=== PATIENT | male | born 1950 | race Caucasian/White ===

== ENCOUNTER 2025-04-28 14:21 | Inpatient (IN) | payer MEDICARE, OTHER, SELFPAY ==
--- NOTE | ~2025-04-28 | CT_ITS ---
EXAMINATION: CT ANGIOGRAM HEAD AND NECK CLINICAL INFORMATION: Dizziness, rule out stroke. COMPARISON: None available. TECHNIQUE: Noncontrast axial imaging of the head was performed. This was followed by test bolus sequences and head and neck intravenous bolus administration 70mL of Omnipaque 350. Helical imaging was performed in the axial plane from the aortic arch to the skull vertex. The data was processed at the chief ultrasound technologist's workstation for generation of MIP sequences. Angled MIPs and volume rendered reformatted images were also generated at an offline 3D workstation. Stenoses are assessed in accordance with NASCET criteria unless otherwise indicated. This CT examination was performed using dose optimization techniques as appropriate, variously including the following: *Automated exposure control *Adjustment of mA and/or kV according to patient size (this includes techniques or standardized protocols for targeted exams where dose is matched to indication/reason for exam; i.e. extremities or head) *Use of iterative reconstruction technique DLP: 1517 mGy*cm FINDINGS: NONCONTRAST HEAD CT: There is no evidence of intracranial hemorrhage or extra-axial fluid collection. There is no mass effect, or edema. No CT evidence of acute territorial infarct. Ventricles, sulci, and cisterns are normal in size and configuration for patient age. No hydrocephalus. No midline shift. No significant white matter abnormalities. Globes and orbital contents image normally. No extracranial soft tissue abnormalities. The paranasal sinuses, mastoid air cells, and tympanic cavities are normally aerated. No suspicious bony abnormalities. NECK CTA: Moderate motion degradation of images through the mid neck. -AORTIC ARCH: Normal in caliber. Mild atheromatous calcification. Three-vessel branching pattern. -GREAT VESSEL ORIGINS: Widely patent. No stenosis. -RIGHT COMMON CAROTID ARTERY: Normal in course and caliber to the level of the bifurcation. -CERVICAL RIGHT INTERNAL CAROTID ARTERY: Normal opacification without focal stenosis or occlusion. -LEFT COMMON CAROTID ARTERY: Normal in course and caliber to the level of the bifurcation. -CERVICAL LEFT INTERNAL CAROTID ARTERY: Mild calcific atherosclerotic disease of the carotid bulb and proximal internal carotid artery resulting in approximate 30% short segment stenosis. -CERVICAL RIGHT VERTEBRAL ARTERY: Codominant. Normal in course and caliber into the skull base. -CERVICAL LEFT VERTEBRAL ARTERY: Codominant. Normal in course and caliber into the skull base. OTHER, SOFT TISSUES: -No lymphadenopathy or mass. No abnormal fluid collection or soft tissue swelling. -Normal thyroid. -Imaged superior mediastinal structures normal. -Imaged lung apices clear. CTA OF THE BRAIN: -INTRACRANIAL INTERNAL CAROTID ARTERIES: No focal stenosis or occlusion. -RIGHT ANTERIOR CEREBRAL ARTERY: Normal A1 segment.. Normal arborization of the distal segments. -LEFT ANTERIOR CEREBRAL ARTERY: Normal A1 segment.. Normal arborization of the distal segments. -ANTERIOR COMMUNICATING ARTERY: Normal. -RIGHT MIDDLE CEREBRAL ARTERY: Normal M1 segment of the MCA without focal stenosis or occlusion. Normal bifurcation. Normal arborization of the distal segments. -LEFT MIDDLE CEREBRAL ARTERY: Normal M1 segment of the MCA without focal stenosis or occlusion. Normal bifurcation. Normal arborization of the distal segments. -RIGHT VERTEBRAL ARTERY V4: Normal in course and caliber. -LEFT VERTEBRAL ARTERY V4: There is fenestration of the mid to distal portion of the left vertebral artery. -BASILAR ARTERY: Normal without focal stenosis or occlusion. Normal appearance of the proximal superior cerebellar arteries. Normal basilar tip. -RIGHT POSTERIOR CEREBRAL ARTERY: Diminutive P1 segment with a origin. Normal opacification of the distal INFORMATION SYSTEMS AUDITOR segments. -LEFT POSTERIOR CEREBRAL ARTERY: The P1 segment is patent. Normal opacification of the distal INFORMATION SYSTEMS AUDITOR segments. 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 Normal opacification of the superior sagittal, straight, transverse, and sigmoid sinuses. No venous thrombosis. No space-occupying hemorrhage or definite evolving infarct. CT/CT angio head neck IMPRESSION: NONCONTRAST HEAD CT: No intracranial hemorrhage or mass effect. No CT evidence of acute territorial infarct. CTA NECK: No hemodynamically significant stenosis.. There is moderate motion artifact. CTA HEAD: No hemodynamically significant stenosis. Notification results sent to Korey Kauffman [facility] 4:45 PM Eastern time Electronically signed by: Mohit Bishop MD 04/28/2025 04:44 PM EDT
[2025-04-28 14:26] VITALS: BP 127/70; BP 132/60; PULSE 90; PULSE 99; RESP 19; TEMP 36.8; O2SAT 94; O2SAT 95; BMI 27.1
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
[2025-04-28 14:44] LABS: Glucose, Whole Blood 254 mg/dL (60-115)
[2025-04-28 15:09] LABS: MANUAL DIFF FLAG NO
[2025-04-28 15:12] LABS: Hematocrit 43.6 % (42.0-52.0); Hemoglobin 15.4 g/dl (14.0-18.0); Imm Gran Abs Auto 0.18 X10*3/uL (0.00-0.03); Imm Gran Pct Auto 0.9 % (0.0-0.4); Lymphocytes Absolute Auto 2.3 X10*3/uL (1.2-4.9); Mean Corpuscular HGB Conc 35.3 g/dl (31.0-36.0); Mean Corpuscular Hemoglobin 32.2 pg (27.0-33.0); Mean Corpuscular Volume 91.0 fL (80.0-98.0); NRBC Abs Auto 0.000 X10*3/uL (0.0-0.012); NRBC Pct Auto 0.0 /100WBC (0.0-0.2); Platelet Count 233 X10*3/uL (160-400); Red Blood Count 4.79 X10*6/uL (4.60-5.80); White Blood Count 19.3 X10*3/uL (4.8-10.8)
[2025-04-28 15:29] LABS: Alanine Aminotransferase 12 U/L (0-40); Albumin Level 3.6 g/dL (3.5-5.0); Alkaline Phosphatase 80 U/L (39-117); Anion Gap 11 (12-20); Aspartate Amino Transferase 17 U/L (5-37); Blood Urea Nitrogen 12 mg/dL (9-16); Calcium 8.2 mg/dL (8.4-10.2); Carbon Dioxide 24 mmol/L (22-29); Chloride 106 mmol/L (96-108); Creatinine Clr Calc Pharmacy 52.6; Estimated Glomerular Filt Rate 59; Potassium 3.8 mmol/L (3.3-5.1); Sodium 137 mmol/L (135-145); Total Protein 6.5 g/dL (6.5-8.0)
[2025-04-28 15:36] LABS: Troponin-I High Sensitivity 4.0 ng/L (<3.5-35.0)
[2025-04-28 15:59] LABS: Appearance Urine Clear; Glucose Urine UA >=1000 mg/dL (Negative); PH 5.5 (5.0-9.0); Specific Gravity - Urine >= 1.030 (1.005-1.025); UMIC TRIGGER UACC YES
[2025-04-28 16:04] LABS: UACC Culture Trigger YES
[2025-04-28 16:09] LABS: Cannabinoid Screen Urine Not Detected (Not Detect)
[2025-04-28 16:14] VITALS: BP 134/67; PULSE 84; RESP 14; TEMP 36.9; O2SAT 96
[2025-04-28] MEDS: iohexoL 350 MG/ML 100 ML INFUS..BTL IV (16:23)
--- OUTSIDE RECORDS SUMMARY | 2025-04-28 17:32 | XMS_ITS | Encounter Summary ---
Author Organization [facility] Address [address] [place] [id number] Phone Care Team Providers Care Vault Attendant Name Role Phone Unknown, Unknown Primary Care Provider Maame richardson Encounter Details Date Type Department Care Team (Late st Contact Info) Description 08/04/2018 Ancillary Orders Virtual Department [address] [place] [address] Mila Ferrer MD [address] [place] [phone] Lung nodule; Abnormal CT scan Social History Tobacco Use Types Packs/Day Years Used Date Smoking Tobacco: Never Assessed Sex and Gender Information Value Date Recorded Sex Assigned at Not on file Legal Sex Male 10:00 PM EDT Gender Identity Not on file Sexual Orientation Not on file documented as of this encounter Plan of Treatment Not on file documented as of this encounter Visit Diagnoses Diagnosis Lung nodule Other diseases of lung, not elsewhere classified Abnormal CT scan Other nonspecific (abnormal) findings on radiological and other examinations of body structure documented in this encounter Care Teams Vault Attendant Relationship Specialty Start Date End Date Unknown, Unknown, PCP - General 08/04/18 documented as of this encounter Additional Source Comments The information contained in this document represents components of the legal health record. It is not the complete legal health record.[facility]
--- OUTSIDE RECORDS SUMMARY | 2025-04-28 17:32 | XMS_ITS | Clinical Summary ---
Author Organization [facility] Address [address] [place] [id number] Phone Care Team Providers Care Custom Stock Maker Name Role Phone Unknown, Unknown Primary Care Provider Maame richardson Social History Tobacco Use Types Packs/Day Years Used Date Smoking Tobacco: Never Assessed Education Answer Date Recorded Are you interested in more education? Not on reina e 12/12/2022 Are you concerned about learning? Not on file 12/12/2022 No 12/12/2022 No 12/12/2022 Digital Access Answer Date Recorded No 01/12/2023 No 01/12/2023 No 01/12/2023 Reliable internet access at home? Not on file 01/12/2023 Device with a working camera? Not on file Sex and Gender Information Value Date Recorded Sex Assigned at Not on file Legal Sex Male 10:00 PM EDT Gender Identity Not on file Sexual Orientation Not on file Last Filed Vital Signs Vital Sign Reading Time Taken Comments Blood Pressure 118/68 10/02/2011 9:50 AM EST Pulse 92 10/02/2011 9:50 AM EST Temperature - - Respiratory Rate - - Oxygen Saturation - - Inhaled Oxygen Concentration - - Weight 102.1 kg (225 lb) 10/02/2011 9:50 AM EST Height 172.7 cm (5' 8 ) 10/02/2011 9:50 AM EST Body Mass Index 34.21 10/02/2011 9:50 AM EST Plan of Treatment Not on file Medical Devices Not on file Insurance [employer] [facility] TOTAL CHOICE INDEMNITY MEDICARE PART A & B TOTAL CHOICE INDEMNITY MEDICARE PART A & B [facility] TOTAL CHOICE INDEMNITY MEDICARE PART A & B [facility] TOTAL CHOICE INDEMNITY MEDICARE PART A & B [employer] TOTAL CHOICE INDEMNITY MEDICARE PART A & B [employer] TOTAL CHOICE INDEMNITY MEDICARE PART A & B [employer] TOTAL CHOICE INDEMNITY MEDICARE PART A & B [employer] TOTAL CHOICE INDEMNITY MEDICARE PART A & B TOTAL [employer] INDEMNITY MEDICARE PART A & B Member Subscriber Plan / Payer (Ef fective 2016-Present) Name:Tao Luong Member ID:[id number] Relation to Subscriber:Self Name:Tao Luong Subscriber ID:[id number] Payer ID:[id number] Group ID:Not on file Type:Medicare Address: [employer] [address] Care Teams Custom Stock Maker Relationship Specialty Start Date End Date Unknown, Unknown, PCP - General 08/04/18 Additional Source Comments The information contained in this document represents components of the legal health record. It is not the complete legal health record.[facility]
[2025-04-28 17:38] VITALS: BP 116/57; BP 137/63; BP 139/65; PULSE 82; PULSE 84; PULSE 88
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
[2025-04-28 18:34] VITALS: BP 124/75; PULSE 82; RESP 19; O2SAT 100
[2025-04-28 19:29] LABS: Glucose, Whole Blood 142 mg/dL (60-115)
--- NOTE | 2025-04-28 19:32 | PC.NURSE ---
assumed care of pt, son at bedside, fluids running as ordered per OCT. POC 142
--- NOTE | 2025-04-28 19:38 | PHA.MEDREC ---
Addendum entered by Leander Cook PharmD 04/28/25 19:48: reviewed Original Note: Pharmacy Consult ? Medication Reconciliation Pharmacy has completed the medication reconciliation. Spoke to patients son at bedside to confirm med list. Son was able to confirm all of patients medications. Son confirmed Tresiba Flex touch 35 units daily, Ozempic 2 mg every Thursday, last dose 04/26/25. Patient had all his morning medications today.
[2025-04-28 20:25] VITALS: BP 119/59; PULSE 96; RESP 16; TEMP 38.2; O2SAT 93
--- NOTE | 2025-04-28 20:37 | PC.NURSE ---
pt oral temp at 100.1, PRN Tylenol given PO. P tolerated swallow well.
[2025-04-28 21:18] LABS: Glucose, Whole Blood 231 mg/dL (60-115)
[2025-04-28 22:25] VITALS: BP 124/61; PULSE 92; RESP 12; TEMP 37.2; O2SAT 93
--- NOTE | 2025-04-28 22:55 | PC.NURSE ---
pt medicated per OCT for fever.
[2025-04-29] VITALS (9 sets, daily range): BP systolic 114–137; BP diastolic 55–67; PULSE 69–77; RESP 16–18; TEMP 36.4–36.9; O2SAT 90–98; BMI 27.1
[2025-04-29] MEDS: 0.9 % Sodium Chloride Flush 3 ML SYRINGE IVFLUSH ×4 (00:47→20:36)
[2025-04-29 06:37] LABS: Alanine Aminotransferase 13 U/L (0-40); Albumin Level 3.5 g/dL (3.5-5.0); Alkaline Phosphatase 70 U/L (39-117); Anion Gap 13 (12-20); Aspartate Amino Transferase 17 U/L (5-37); Blood Urea Nitrogen 13 mg/dL (9-16); Calcium 8.4 mg/dL (8.4-10.2); Carbon Dioxide 23 mmol/L (22-29); Chloride 108 mmol/L (96-108); Creatinine Clr Calc Pharmacy 63.0; Estimated Glomerular Filt Rate > 60; Potassium 3.5 mmol/L (3.3-5.1); Sodium 140 mmol/L (135-145); Total Protein 6.2 g/dL (6.5-8.0)
--- NOTE | 2025-04-29 06:39 | PC.NURSE ---
blood sugar at 50, PRN 50% dextrose given per MAR.
[2025-04-29 07:18] LABS: Glucose, Whole Blood 149 mg/dL (60-115)
[2025-04-29] MEDS: Aspirin Enteric Coated 81 MG TABLET.DR PO (09:21)
--- NOTE | 2025-04-29 09:50 | P.PNIM_ITS ---
Subjective Subjective Date of Service: 04/29/25 Interval History: f/u on symptomatic uti, and confusion hypoglycemia this morning, sugar of 57 given iv dextrose with improvement Physical Exam 2 Vital Signs: Vital Signs: Last Vital Signs Temp 98.5 F 04/29/25 08:00 Pulse 72 04/29/25 08:52 Resp 16 04/29/25 08:00 BP 114/55 L 04/29/25 08:52 Pulse Ox 97 04/29/25 08:00 O2 Del Method Room Air 04/29/25 08:00 O2 Flow Rate 2 04/29/25 05:56 BMI result Body Mass Index 27.1 General: AO X 3, no acute distress Resp: CTA bilateral CVS: S1,S2,RRR GI: +BS, NT, no distention Skin: No rash Neuro: motor grossly intact Psych: appropriate affect Objective Data Active Medications Acetaminophen (Acetaminophen 325 Mg Tablet) 650 mg PO Q6H PRN PRN Reason: Pain, Mild 1-3,fever,headache Last Admin: 04/28/25 20:31 Dose: 650 mg Documented By: DENZEL Amitriptyline HCl (Amitriptyline Hcl 25 Mg Tablet) 75 mg PO BID [facility] Last Admin: 04/29/25 09:21 Dose: 75 mg Documented By: ERICA Aspirin (Aspirin Enteric Coated 81 Mg Tablet.) 81 mg PO DAILY [facility] Last Admin: 04/29/25 09:21 Dose: 81 mg Documented By: ERICA Atorvastatin Calcium (Atorvastatin Calcium 10 Mg Tablet) 10 mg PO DAILY [facility] Last Admin: 04/29/25 09:21 Dose: 10 mg Documented By: ERICA Calcium Carbonate (Calcium Carbonate 750 Mg Tab.Chew) 750 mg PO Q4H PRN PRN Reason: Heartburn Ceftriaxone Sodium (Ceftriaxone Sodium 1 Gm Vial) 1 gm IVPUSH DAILY [facility] Last Admin: 04/29/25 09:25 Dose: 1 gm Documented By: ERICA Dextrose (Dextrose 50 % 25 Gm/50 Ml Syringe) 25 gm IVPUSH Q15M PRN; Protocol PRN Reason: per Hypoglycemia Standing Ord. Last Admin: 04/29/25 06:39 Dose: 25 gm Documented By: DENZEL Enoxaparin Sodium (Enoxaparin Sodium 40 Mg/0.4 Ml Syringe) 40 mg SUBCUT Q24H [facility] Last Admin: 04/28/25 18:17 Dose: 40 mg Documented By: JOHNATHON Glucose (Glucose Gel 15 Gm Gel..Gram.) 15 gm PO Q15M PRN; Protocol PRN Reason: per Hypoglycemia Standing Ord. Insulin Human Lispro (Insulin Lispro 100 Unit/Ml 3 Ml Vial) 0 unit SUBCUT QIDACHS [facility]; Protocol Last Admin: 04/29/25 08:10 Dose: Not Given Documented By: DENZEL Non-Admin Reason: No Insulin Coverage Lisinopril (Lisinopril 10 Mg Tablet) 10 mg PO DAILY [facility]; Protocol Last Admin: 04/29/25 09:21 Dose: 10 mg Documented By: ERICA Magnesium Hydroxide (Milk Of Magnesia 30 Ml Oral.Susp) 30 ml PO DAILY PRN PRN Reason: Constipation Melatonin (Melatonin 3 Mg Tablet) 6 mg PO BEDTIME PRN PRN Reason: Insomnia Sodium Chloride (0.9 % Sodium Chloride Flush 3 Ml Syringe) 3 ml IVFLUSH QSHIFT [facility] Last Admin: 04/29/25 09:25 Dose: 3 ml Documented By: ERICA Labs 04/29/25 10:12 04/29/25 05:20 Labs: Laboratory Results - last 24 hr 04/28/25 04/28/25 04/28/25 14:31 15:03 15:49 MCV 91.0 MCH 32.2 MCHC 35.3 RDW 12.6 Plt Count 233 MPV 8.9 L Immature Gran % (Auto) 0.9 H Neut % (Auto) 78.2 H Lymph % (Auto) 11.8 L [place] % (Auto) 6.6 Eos % (Auto) 2.1 Baso % (Auto) 0.4 Lymph # (Auto) 2.3 [place] # (Auto) 1.3 H Eos # (Auto) 0.4 Baso # (Auto) 0.1 Abs Immat Gran (auto) 0.18 H Absolute Neuts (auto) 15.1 H Absolute Nucleated RBC 0.000 Nucleated RBC % (auto) 0.0 Anion Gap 11 L Estim Creat Clear Calc 52.6 Estimated GFR 59 POC Glucose 254 H Random Glucose 250 H Lactic Acid Calcium 8.2 L Total Bilirubin 0.5 AST 17 ALT 12 Alkaline Phosphatase 80 Total Protein 6.5 Albumin 3.6 Beta-Hydroxybutyrate 0.47 H Urine Color Yellow Urine Appearance Clear Urine pH 5.5 Ur Specific [place] >= 1.030 H Urine Protein 100 (2+) H Urine Glucose (UA) >=1000 H Urine Ketones Trace Urine Blood Trace H Urine Nitrite Positive H Ur Leukocyte Esterase Small (1+) H Urine RBC 0-2 Urine WBC >50 H Ur Squamous Epith Cells 0-2 Urine Bacteria 1+ Hyaline Casts 0-2 Urine Opiates Screen Not Detected Ur Buprenorphine Scrn Not Detected Ur Oxycodone Screen Not Detected Urine Methadone Screen Not Detected Urine Fentanyl Screen Not Detected Ur Barbiturates Screen Not Detected Ur Phencyclidine Scrn Not Detected Ur Amphetamines Screen Not Detected U Benzodiazepines Scrn Not Detected Urine Cocaine Screen Not Detected U Marijuana (THC) Screen Not Detected Ethyl Alcohol < 10 04/28/25 04/28/25 04/28/25 17:29 19:25 21:15 MCV MCH MCHC RDW Plt Count MPV Immature Gran % (Auto) Neut % (Auto) Lymph % (Auto) [place] % (Auto) Eos % (Auto) Baso % (Auto) Lymph # (Auto) [place] # (Auto) Eos # (Auto) Baso # (Auto) Abs Immat Gran (auto) Absolute Neuts (auto) Absolute Nucleated RBC Nucleated RBC % (auto) Anion Gap Estim Creat Clear Calc Estimated GFR POC Glucose 142 H 231 H Random Glucose Lactic Acid 0.9 Calcium Total Bilirubin AST ALT Alkaline Phosphatase Total Protein Albumin Beta-Hydroxybutyrate Urine Color Urine Appearance Urine pH Ur Specific [place] Urine Protein Urine Glucose (UA) Urine Ketones Urine Blood Urine Nitrite Ur Leukocyte Esterase Urine RBC Urine WBC Ur Squamous Epith Cells Urine Bacteria Hyaline Casts Urine Opiates Screen Ur Buprenorphine Scrn Ur Oxycodone Screen Urine Methadone Screen Urine Fentanyl Screen Ur Barbiturates Screen Ur Phencyclidine Scrn Ur Amphetamines Screen U Benzodiazepines Scrn Urine Cocaine Screen U Marijuana (THC) Screen Ethyl Alcohol 04/29/25 04/29/25 05:20 07:14 MCV MCH MCHC RDW Plt Count MPV Immature Gran % (Auto) Neut % (Auto) Lymph % (Auto) [place] % (Auto) Eos % (Auto) Baso % (Auto) Lymph # (Auto) [place] # (Auto) Eos # (Auto) Baso # (Auto) Abs Immat Gran (auto) Absolute Neuts (auto) Absolute Nucleated RBC Nucleated RBC % (auto) Anion Gap 13 Estim Creat Clear Calc 63.0 Estimated GFR > 60 POC Glucose 149 H Random Glucose 57 L* Lactic Acid Calcium 8.4 Total Bilirubin 0.6 AST 17 ALT 13 Alkaline Phosphatase 70 Total Protein 6.2 L Albumin 3.5 Beta-Hydroxybutyrate Urine Color Urine Appearance Urine pH Ur Specific [place] Urine Protein Urine Glucose (UA) Urine Ketones Urine Blood Urine Nitrite Ur Leukocyte Esterase Urine RBC Urine WBC Ur Squamous Epith Cells Urine Bacteria Hyaline Casts Urine Opiates Screen Ur Buprenorphine Scrn Ur Oxycodone Screen Urine Methadone Screen Urine Fentanyl Screen Ur Barbiturates Screen Ur Phencyclidine Scrn Ur Amphetamines Screen U Benzodiazepines Scrn Urine Cocaine Screen U Marijuana (THC) Screen Ethyl Alcohol Assessment and Plan (1) Diabetes: Status: Acute (2) UTI (urinary tract infection): Status: Acute Plan 1. Urinary Tract Infection: The patient had a positive urinalysis for a urinary tract infection, which is likely contributing to his weakness and overall condition of confusion. He has been started on Ceftriaxone which will be continue, follow culture sensitivity. Repeat WBC in the morning. 2. Diabetes with Hyperglycemia on admission and now hypoglycemia this morning, despite not taking his meds: He is on lantus, ozempic, jardiance at home. Sugar this morning 57. hold Jardiance, lantus and continue ssi, diabetic diet--there is posibility of hypoglycemia as contributing to his presenting symptoms despite BS reported high when he came in 3. HLD on Simvastatin at home, continue formulary exchange 4. HTN continue Lisinpril 5. Mood disorder, elavil DVT prophylaxis: Lovenox Full code Quality Stroke Does the patient have a stroke diagnosis?: No VTE Prior VTE?: No VTE Risk Level:: Medical - moderate - high VTE Device Contraindication: Treatment Not Indicated VTE Drug Contraindication: N/A - Med Ordered
[2025-04-29 10:26] LABS: Hematocrit 44.3 % (42.0-52.0); Hemoglobin 15.4 g/dl (14.0-18.0); Mean Corpuscular HGB Conc 34.8 g/dl (31.0-36.0); Mean Corpuscular Hemoglobin 32.1 pg (27.0-33.0); Mean Corpuscular Volume 92.3 fL (80.0-98.0); NRBC Abs Auto 0.000 X10*3/uL (0.0-0.012); NRBC Pct Auto 0.0 /100WBC (0.0-0.2); Platelet Count 235 X10*3/uL (160-400); Red Blood Count 4.80 X10*6/uL (4.60-5.80); White Blood Count 19.3 X10*3/uL (4.8-10.8)
--- NOTE | 2025-04-29 10:42 | MHC.CM.PN ---
pt lives alone is indepedent has a ride home dc plan home n/s
[2025-04-29 11:08] LABS: Glucose, Whole Blood 128 mg/dL (60-115)
[2025-04-29 16:21] LABS: Glucose, Whole Blood 168 mg/dL (60-115)
[2025-04-29 20:06] LABS: Glucose, Whole Blood 155 mg/dL (60-115)
[2025-04-30 03:21] VITALS: BP 137/71; PULSE 77; RESP 18; TEMP 36.4; O2SAT 93
[2025-04-30 07:20] VITALS: BP 122/60; PULSE 68; RESP 18; TEMP 37; O2SAT 93
[2025-04-30 07:26] LABS: Glucose, Whole Blood 117 mg/dL (60-115)
[2025-04-30] MEDS: Aspirin Enteric Coated 81 MG TABLET.DR PO (08:45)
[2025-04-30] MEDS: 0.9 % Sodium Chloride Flush 3 ML SYRINGE IVFLUSH (08:47)
--- NOTE | 2025-04-30 08:47 | P.PNIM_ITS ---
Subjective Subjective Date of Service: 04/30/25 Interval History: f/u on symptomatic uti, and confusion dong well, no new issues, BS ok Physical Exam 2 Vital Signs: Vital Signs: Last Vital Signs Temp 98.6 F 04/30/25 07:20 Pulse 68 04/30/25 07:20 Resp 18 04/30/25 07:20 BP 122/60 04/30/25 07:20 Pulse Ox 93 04/30/25 07:20 O2 Del Method Room Air 04/30/25 07:20 O2 Flow Rate 2 04/29/25 05:56 BMI result Body Mass Index 27.1 General: AO X 3, no acute distress Resp: CTA bilateral CVS: S1,S2,RRR GI: +BS, NT, no distention Skin: No rash Neuro: motor grossly intact Psych: appropriate affect Objective Data Active Medications Acetaminophen (Acetaminophen 325 Mg Tablet) 650 mg PO Q6H PRN PRN Reason: Pain, Mild 1-3,fever,headache Last Admin: 04/28/25 20:31 Dose: 650 mg Documented By: DENZEL Amitriptyline HCl (Amitriptyline Hcl 25 Mg Tablet) 75 mg PO BID [facility] Last Admin: 04/30/25 08:45 Dose: 75 mg Documented By: ERICA Aspirin (Aspirin Enteric Coated 81 Mg Tablet.Dr) 81 mg PO DAILY [facility] [place] Last Admin: 04/30/25 08:45 Dose: 81 mg Documented By: ERICA Atorvastatin Calcium (Atorvastatin Calcium 10 Mg Tablet) 10 mg PO DAILY [facility] Last Admin: 04/30/25 08:45 Dose: 10 mg Documented By: ERICA Calcium Carbonate (Calcium Carbonate 750 Mg Tab.Chew) 750 mg PO Q4H PRN PRN Reason: Heartburn Ceftriaxone Sodium (Ceftriaxone Sodium 1 Gm Vial) 1 gm IVPUSH DAILY [facility] Last Admin: 04/29/25 09:25 Dose: 1 gm Documented By: ERICA Dextrose (Dextrose 50 % 25 Gm/50 Ml Syringe) 25 gm IVPUSH Q15M PRN; Protocol PRN Reason: per Hypoglycemia Standing Ord. Last Admin: 04/29/25 06:39 Dose: 25 gm Documented By: DENZEL Enoxaparin Sodium (Enoxaparin Sodium 40 Mg/0.4 Ml Syringe) 40 mg SUBCUT Q24H [facility] Last Admin: 04/29/25 17:50 Dose: 40 mg Documented By: ERICA Glucose (Glucose Gel 15 Gm Gel..Gram.) 15 gm PO Q15M PRN; Protocol PRN Reason: per Hypoglycemia Standing Ord. Doxycycline Hyclate 100 mg/ (Sodium Chloride) 250 mls @ 166.67 mls/hr IV Q12H [facility] Last Infusion: 04/30/25 04:12 Dose: Infused Documented By: VINNIE Insulin Human Lispro (Insulin Lispro 100 Unit/Ml 3 Ml Vial) 0 unit SUBCUT QIDACHS [facility]; Protocol Last Admin: 04/30/25 07:32 Dose: Not Given Documented By: ERICA Non-Admin Reason: No Insulin Coverage Lisinopril (Lisinopril 10 Mg Tablet) 10 mg PO DAILY [facility]; Protocol Last Admin: 04/30/25 08:45 Dose: 10 mg Documented By: ERICA Magnesium Hydroxide (Milk Of Magnesia 30 Ml Oral.Susp) 30 ml PO DAILY PRN PRN Reason: Constipation Melatonin (Melatonin 3 Mg Tablet) 6 mg PO BEDTIME PRN PRN Reason: Insomnia Sodium Chloride (0.9 % Sodium Chloride Flush 3 Ml Syringe) 3 ml IVFLUSH QSHIFT [facility] Last Admin: 04/29/25 20:36 Dose: 3 ml Documented By: VINNIE Labs 04/29/25 10:12 04/29/25 05:20 Labs: Laboratory Results - last 24 hr 04/29/25 04/29/25 04/29/25 10:12 11:04 16:17 MCV 92.3 MCH 32.1 MCHC 34.8 RDW 12.4 Plt Count 235 MPV 9.1 L Absolute Nucleated RBC 0.000 Nucleated RBC % (auto) 0.0 POC Glucose 128 H 168 H 04/29/25 04/30/25 20:01 07:23 MCV MCH MCHC RDW Plt Count MPV Absolute Nucleated RBC Nucleated RBC % (auto) POC Glucose 155 H 117 H Microbiology Microbiology Results: Microbiology 04/28/25 Unknown Urine Culture - Preliminary Urine clean catch - Clean Catch Midstream Staphylococcus epidermidis 04/28/25 17:29 Blood Culture - Preliminary Blood - Venous No growth after 24 hours. 04/28/25 17:29 Blood Culture - Preliminary Blood - Venous No growth after 24 hours. Assessment and Plan (1) Diabetes: Status: Acute (2) UTI (urinary tract infection): Status: Acute Plan 1. Urinary Tract Infection: The patient had a positive urinalysis for a urinary tract infection, which is likely contributing to his weakness and overall condition of confusion. He has been started on Ceftriaxone and Doxy, urine culture = staph species, sensitivity pending 2. Diabetes with Hyperglycemia on admission, and hypoglycemia next day despite not taking his meds: He is on lantus, ozempic, jardiance at home. Sugar this morning 57. He is only being SSI in the hospital Fasting blood sugar is 117 today. He is supposed to be on Tresiba 35, jardiance 25 daily and Ozempic 2 mg weekly.. Concern that hypoglycemia may have contributed to his presenting condition. Check A1C. Hold Tresiba, Jardiance for now. 3. HLD on Simvastatin at home, continue formulary exchange 4. HTN continue Lisinpril 5. Mood disorder, elavil DVT prophylaxis: Lovenox Full code Quality Stroke Does the patient have a stroke diagnosis?: No VTE Prior VTE?: No VTE Risk Level:: Medical - moderate - high VTE Device Contraindication: Treatment Not Indicated VTE Drug Contraindication: N/A - Med Ordered
[2025-04-30 08:49] LABS: Hematocrit 46.8 % (42.0-52.0); Hemoglobin 16.2 g/dl (14.0-18.0); Mean Corpuscular HGB Conc 34.6 g/dl (31.0-36.0); Mean Corpuscular Hemoglobin 32.2 pg (27.0-33.0); Mean Corpuscular Volume 93.0 fL (80.0-98.0); NRBC Abs Auto 0.000 X10*3/uL (0.0-0.012); NRBC Pct Auto 0.0 /100WBC (0.0-0.2); Platelet Count 270 X10*3/uL (160-400); Red Blood Count 5.03 X10*6/uL (4.60-5.80); White Blood Count 14.6 X10*3/uL (4.8-10.8)
[2025-04-30 09:01] LABS: Anion Gap 13 (12-20); Blood Urea Nitrogen 13 mg/dL (9-16); Calcium 8.9 mg/dL (8.4-10.2); Carbon Dioxide 26 mmol/L (22-29); Chloride 104 mmol/L (96-108); Creatinine Clr Calc Pharmacy 64.2; Estimated Glomerular Filt Rate > 60; Potassium 3.9 mmol/L (3.3-5.1); Sodium 139 mmol/L (135-145)
[2025-04-30 11:11] LABS: Glucose, Whole Blood 187 mg/dL (60-115)
[2025-04-30 11:18] VITALS: BP 123/66; PULSE 72; RESP 16; TEMP 36.9; O2SAT 95
--- NOTE | 2025-04-30 13:57 | P.DS_ITS ---
DS: Providers Provider Date of Service: 04/30/25 Date of admission: 04/28/25 17:48 Date of discharge: 04/30/25 Primary care physician: Pedro Vargas MD DS: Diagnosis Discharge Diagnosis (1) Diabetes: Status: Acute (2) UTI (urinary tract infection): Status: Acute DS: Summary Hospital Course Hospital Course: Admission hpi Chief Complaint: Confusion The patient is a 74-year-old male with a history of diabetes with confusion. The patient was on his way to his primary care physician's and he was noted to be swearving in traffic and was pulled over by polic and subsequently brought to the ED. Head is negative for acute finding. WBC is 19K and UA is grossly positive for UTI. He is started on Ceftriaxone for UTI. He denies fever, dysuria. He reports feeling dizzy and almost passing out while in bathroom several days ago. Utox and alcohol level are normal Hospital course: Patient presented with confusion, and sweavering in trafic. Upon presentation in ED, CT head showed no acute finding. Further testing revealed UTI and WBC was 19, there was no hypolycemia, gluse was over 200.. At the time I saw him in the ED, he was lucid. He was hydrated, admited and given IV Abx, initially with IV Ceftriaxone, the next day urine culture showed staph species and WBC remained high at 19, Doxycyline was added and by 3rd day urine culture was reported as staph species and wbc is trending down. presently 14. Nof ever and other features of sepsis. Will transition to oral Doxycyline at discharge for a total of 10 days. Confusion--Likely related to UTI, and has been lucid since hospitalization. He had an episode of hypoglycemia, the next morning, assymptomatic. Diabetes with Hyperglycemia on admission, and hypoglycemia next day despite not taking his meds: He is on lantus, ozempic, jardiance at home. Sugar day after admission was 57. He is only being SSI in the hospital Fasting blood sugar is 117 today. He is supposed to be on Tresiba 35, jardiance 25 daily and Ozempic 2 mg weekly.. Concern that hypoglycemia may have contributed to his presenting condition. Check A1C. He relates that he sometimes get low sugars at home and will drink only juice. I am advising him to decrease Tresiba to 15 for now. Chart all sugars and to follow up with PCP later this week--Plan was communicated with patient and son at the bedside 3. HLD on Simvastatin at home, continue formulary exchange 4. HTN continue Lisinpril 5. Mood disorder, elavil Time Attestation Discharge Coordination Time (in mins): 40 Quality: Safe Use of Opioids Does Pt have an Active Cancer Diagnosis on the Problem List?: No Quality: Stroke Does the patient have a stroke diagnosis?: No Physical Exam Vital Signs: Vital Signs: Last Vital Signs Temp 98.4 F 04/30/25 11:18 Pulse 72 04/30/25 11:18 Resp 16 04/30/25 11:18 BP 123/66 04/30/25 11:18 Pulse Ox 95 04/30/25 11:18 O2 Del Method Room Air 04/30/25 11:18 O2 Flow Rate 2 04/29/25 05:56 BMI result Body Mass Index 27.1 DS: Data Data Completed and Pending Labs on day of discharge: Laboratory Results - last 24 hr 04/29/25 04/29/25 04/30/25 16:17 20:01 07:23 WBC RBC Hgb Hct MCV MCH MCHC RDW Plt Count MPV Absolute Nucleated RBC Nucleated RBC % (auto) Sodium Potassium Chloride Carbon Dioxide Anion Gap BUN Creatinine Estim Creat Clear Calc Estimated GFR POC Glucose 168 H 155 H 117 H Random Glucose Calcium 04/30/25 04/30/25 08:13 11:02 WBC 14.6 H RBC 5.03 Hgb 16.2 Hct 46.8 MCV 93.0 MCH 32.2 MCHC 34.6 RDW 12.2 Plt Count 270 MPV 9.3 L Absolute Nucleated RBC 0.000 Nucleated RBC % (auto) 0.0 Sodium 139 Potassium 3.9 Chloride 104 Carbon Dioxide 26 Anion Gap 13 BUN 13 Creatinine 0.99 Estim Creat Clear Calc 64.2 Estimated GFR > 60 POC Glucose 187 H Random Glucose 142 H Calcium 8.9 Preliminary micro results at discharge 04/28/25 17:29 Blood Culture - Preliminary Blood - Venous No growth after 24 hours. 04/28/25 17:29 Blood Culture - Preliminary Blood - Venous No growth after 24 hours. Discharge Plan Discharge Anticipated Discharge Date/Time: 04/30/25 13:58 Patient Disposition: Home, Self-Care Discharge Diagnosis: Uti, confusion, hypoglycemia Referrals: Pedro Vargas MD [Primary Care Provider, Medical] - 1 Week Discharge Medications: New doxycycline monohydrate 100 mg tablet 100 mg PO DAILY Qty: 16 0RF Continued amitriptyline 25 mg tablet 75 mg PO BID simvastatin 20 mg tablet 20 mg PO DAILY lisinopril 10 mg tablet 10 mg PO DAILY Jardiance 25 mg tablet 25 mg PO DAILY Ozempic 2 mg/dose (8 mg/3 mL) pen injector 2 mg SUBCUT WE aspirin 81 mg Tablet 81 mg PO DAILY Changed insulin degludec [Tresiba FlexTouch U-200] 200 unit/mL (3 mL) insulin pen 15 unit SUBCUT DAILY 210 Days Qty: 15.75 0RF Discharge Orders: Discharge Order (Routine); Ordered 04/30/25 Ordered By: Phillip Davidson Diet: Low salt diet Activity on Discharge: As tolerated Stand Alone Forms: Patient Portal Discharge page Print Language: Palestinian Care Plan Goals: recovery from UTI and confusion Health Concerns: UTI confusion Hypoglycemia Plan of Treatment: Take Doxycycline and Ceftin as directed and follow up with your doctor in week, call for appointment Take insulin Tresiba 15 units now not 35 and record your sugars before meals and at bedtime and give to your doctor at next vist if your sugar are lowin the 70s and 80s, talk to your doctor before taking the next dose of Ozempic.. Avoid driving for at least 1 week until you complete antibitics and see your doctor Assessment: see above
[2025-04-30 15:23] LABS: Hemoglobin A1C 296.3717 umol/L; Total Hemoglobin (HGBA1C) 4037.0081 umol/L
[2025-04-30 15:48] VITALS: BP 128/69; PULSE 76; RESP 16; TEMP 36.9; O2SAT 95
--- NOTE | 2025-04-30 16:19 | MHC.CM.PN ---
Patient is discharged today to home self care. he has arranged for a ride home.
[2025-04-30 16:27] LABS: Glucose, Whole Blood 141 mg/dL (60-115)
== END 2025-04-30 16:44 | disposition home or self-care (01) | DRG 690 ==
LOC: HO.ED 14:59 → HO.EDOVER 17:54 → HO.S3 04-29 07:30
PROVIDERS: Physician Assistant; Admitting Provider Internal Medicine; Emergency Provider Emergency Medicine; PCP Internal Medicine; Visit Provider Internal Medicine
DX: N39.0 Urinary tract infection, site not specified (principal); E11.65 Type 2 diabetes mellitus with hyperglycemia; F39 Unspecified mood [affective] disorder; I10 Essential (primary) hypertension; E78.5 Hyperlipidemia, unspecified; E11.649 Type 2 diabetes mellitus with hypoglycemia without coma; F17.210 Nicotine dependence, cigarettes, uncomplicated; B95.8 Unspecified staphylococcus as the cause of diseases classified elsewhere; Z71.6 Tobacco abuse counseling; Z79.4 Long term (current) use of insulin; Z79.899 Other long term (current) drug therapy
CPT/HCPCS: 36415; 70496; 70498; 80048; 80053; 80307; 81001; 81003; 82010; 82947; 83036; 83605; 84484; 85025; 85027; 87040; 87086; 87088; 87186; 99285; J0696; J1271; J1650; Q9967

== ENCOUNTER → 2025-04-28 14:34 | Outpatient (BNV) | payer OTHER, SELFPAY | PROVIDERS: Emergency Provider Emergency Medicine; PCP Internal Medicine; Visit Provider Radiology Diagnostic Radiology | DX: R42 Dizziness and giddiness (principal) | CPT/HCPCS: 70496; 70498 ==

== ENCOUNTER → 2025-04-28 17:48 | Outpatient (BNV) | payer OTHER, SELFPAY | PROVIDERS: Admitting Provider Internal Medicine; Emergency Provider Emergency Medicine; PCP Internal Medicine; Visit Provider Internal Medicine | DX: E11.9 Type 2 diabetes mellitus without complications (principal); N30.00 Acute cystitis without hematuria | CPT/HCPCS: 99223; 99232; 99239; 99499 ==